=== PATIENT | female | born 1980 | race Native Hawaiian/Other Pacific Islander ===

== ENCOUNTER 2020-09-09 18:11 | Outpatient (CLI) | payer OTHER | END 2020-09-09 21:38 | disposition home or self-care (01) | LOC: LAB 18:11 | PROVIDERS: ATTEND Nurse Practitioner Family | DX: R73.01 Impaired fasting glucose (principal); R53.83 Other fatigue; R63.5 Abnormal weight gain; E07.89 Other specified disorders of thyroid; E78.5 Hyperlipidemia, unspecified | CPT/HCPCS: 80061; 82306; 82607; 83036; 84439; 84443 ==